=== PATIENT | female | born 1960 | race Caucasian/White ===

== ENCOUNTER 2018-03-22 06:51 | Emergency (ER) | payer MEDICAID ==
[~2018-03-22] VITALS: Ht 180.3 cm; Wt 86.2 kg
[2018-03-22] MEDS ORDERED: NORVASC10 MG ORAL (07:07)
[2018-03-22] MEDS ORDERED: IRBESARTAN300 MG ORAL ×2 (07:07→08:04)
[2018-03-22 07:20] VITALS: BP 133/69
[2018-03-22] MEDS ORDERED: Oxymetazoline 0.05% Na Spray 30ml NASAL ONE (07:30)
[2018-03-22] MEDS ORDERED: AMLODIPINE BESY10 MG ORAL (08:04)
[2018-03-22] MEDS ORDERED: SALINE NOSE SPR45 ML NS (08:04)
[2018-03-22 08:11] VITALS: BP 125/81
--- NOTE | 2018-03-22 09:14 | Emergency Room Report ---
History of Present Illness General Chief Complaint: Nosebleed Source: Patient Present Illness HPI 58-year-old female presents ED for evaluation. States she's been having on and off nosebleed for the last week. States last episode was last night. Last for a few minutes that resolved. Denies any bleeding at this time. States that her blood pressure is high. Blood pressure in triage 121/77. Denies any headache. Denies any blurry vision. Denies any blood thinners. Denies pain. Denies any recent trauma. States that she has run out of her blood pressure medications. No other aggravating relieving factors. Denies any other associated symptoms Allergies: Coded Allergies: CODEINE (Verified Allergy, Unknown, 03/22/18) Patient History Past Medical History: HTN Past Surgical History: none Pertinent Family History: none Social History: Denies: smoking, alcohol use, drug use Last Menstrual Period: 2009 Now: No Immunizations: UTD Reviewed Nursing Documentation: PMH: Agreed; PSxH: Agreed Nursing Documentation-PMH Past Medical History: No History, Except For Hx Cardiac Problems: No - anemia Hx Hypertension: Yes Hx Gastrointestinal Problems: No - gallbladder/appendix removal Review of Systems All Other Systems: negative except mentioned in HPI Physical Exam Vital Signs Date Time Temp Pulse Resp B/P (MAP) Pulse Ox O2 Delivery O2 Flow Rate FiO2 03/22/18 07:01 98.1 90 16 121/77 97 Room Air Sp02 EP Interpretation: reviewed, normal General Appearance: no apparent distress, alert, GCS 15, non-toxic Head: normocephalic Eyes: bilateral eye normal inspection, bilateral eye PERRL ENT: hearing grossly normal, normal pharynx, no angioedema, normal voice, uvula midline, other - nares mucus membranes dry. no signs of bleeding. Neck: normal inspection Respiratory: normal inspection Cardiovascular #1: normal inspection Gastrointestinal: normal inspection Rectal: deferred Genitourinary: no CVA tenderness Musculoskeletal: normal inspection Neurologic: alert, oriented x3, responsive, motor strength/tone normal, sensory intact, speech normal Psychiatric: normal inspection Skin: normal inspection Lymphatic: normal inspection Medical Decision Making Diagnostic Impression: Primary Impression: Epistaxis ER Course 58-year-old female presents to ED with epistaxis for 1 week. no bleeding at this time Differential-anterior epistaxis, posterior epistaxis, coagulopathy Patient placed on stretcher. After initial history, physical exam reveals middle aged female in no acute distress. On exam there is no active bleeding from either nostril. mucus membranes appear dry. Vital stable. Discussed with patient. We will spray Afrin and observe. During ED course patient had no repeat episodes of epistaxis Reassurance given. We'll discharge with saline spray. I explained to the patient that hypertension does not have direct correlation to nosebleeds. Blood pressure okay here however we'll provide refills of her BP meds. Does not have a PMD at this time. We'll provide referrals Diagnoses- epistaxis Stable and discharged to home with Rx saline spray, irebesartan, amlopdipine. followup with PMD. Return to ED if symptoms recur or worsen Last Vital Signs Date Time Temp Pulse Resp B/P (MAP) Pulse Ox O2 Delivery O2 Flow Rate FiO2 03/22/18 08:11 97.9 83 19 125/81 98 Room Air Status: improved Disposition: HOME, SELF-CARE Condition: Stable Scripts Amlodipine Besylate* (AMLODIPINE BESYLATE*) 10 Mg Tablet 10 MG ORAL DAILY for 30 Days, TAB Prov: Richard Hernandez MD 03/22/18 Irbesartan (IRBESARTAN) 300 Mg Tablet 300 MG ORAL DAILY for 30 Days, TAB Prov: Richard Hernandez MD 03/22/18 Sodium Chloride (SALINE NOSE SPRAY) 45 Ml [place] 1 SPRAYS NS BID, #45 ML Prov: Richard Hernandez MD 03/22/18 Referrals: NON PHYSICIAN (PCP) Replaced By [facility] Patient Instructions: Nosebleed, [id number] Richard Hernandez MD Mar 22, 2018 09:14
== END 2018-03-22 08:13 | disposition home or self-care (01) ==
LOC: EMR 07:29
DX: R04.0 Epistaxis (principal); Z88.6 Allergy status to analgesic agent; I10 Essential (primary) hypertension; Z90.49 Acquired absence of other specified parts of digestive tract; Z90.89 Acquired absence of other organs
CPT/HCPCS: 99283